=== PATIENT | female | born 1980 ===

== ENCOUNTER 2018-01-17 21:30 | Emergency (ER) | payer OTHER ==
[2018-01-17 21:31] VITALS: BMI 25.8
[2018-01-17 21:41] VITALS: RESP 20
[2018-01-17 21:55] LABS: BASO % 0.4 % (0.0-2.0); EOS # 0.1 K/uL (0.0-0.7); EOS % 0.7 % (0.0-4.0); HEMOGLOBIN 14.9 g/dL (11.0-16.0); LYMPH # 0.6 K/uL (1.0-4.3); LYMPH % 5.2 % (20.0-40.0); MEAN CELL VOLUME 88.7 fL (81.0-99.0); MEAN CORPUSCULAR HGB CONC 32.7 g/dL (33.0-37.0); MEAN PLATELET VOLUME 10.4 fL (7.2-11.7); MONO # 0.4 K/uL (0.0-0.8); MONO % 3.3 % (0.0-10.0); NEUT # 10.9 K/uL (1.8-7.0); NEUT % 90.4 % (50.0-75.0); PLATELET COUNT 202 K/uL (130-400); RBC 5.13 Mil/uL (3.80-5.20); RED CELL DISTRIBUTION WIDTH 13.6 % (11.5-14.5)
--- NOTE | 2018-01-17 22:01 | C.PDOC ---
History Of Present Illness 37 year old female with no PMHx presents to ED complaining of abdominal pain, nausea, vomiting and diarrhea that began this morning. There have been over 10 episodes of watery bowel movements, non-bloody and 4 episodes of vomiting. A bdominal pain is located in the epigastrium and described as tightness. Patient also complains of chills. Denies fever, dysuria, hematuria, and frequency. <ParraLolaDelma P - Last Filed: 01/17/18 22:03> <ParraDelma donahue P - Last Filed: 01/17/18 22:03> <David Mai E - Last Filed: 01/17/18 22:50> Time Seen by Provider: 01/17/18 21:45 Chief Complaint (Nursing): Abdominal Pain Past Medical History Vital Signs: Last Vital Signs Temp 98.6 F 01/17/18 21:37 Pulse 80 01/17/18 21:37 Resp 20 01/17/18 21:37 BP 110/75 01/17/18 21:37 Pulse Ox 98 01/17/18 21:37 - Medical History PMH: No Chronic Diseases Denies: Chronic Kidney Disease Surgical History: Cholecystectomy, (x2) Denies: Pacemaker Family History: States: Unknown Family Hx - Social History Hx Alcohol Use: No Hx Substance Use: No - Immunization History Hx Tetanus Toxoid Vaccination: No Hx Influenza Vaccination: No Hx Pneumococcal Vaccination: No <Delma Parra P - Last Filed: 01/17/18 22:03> Vital Signs: Last Vital Signs Temp 98.6 F 01/17/18 21:37 Pulse 80 01/17/18 21:37 Resp 20 01/17/18 21:37 BP 110/75 01/17/18 21:37 Pulse Ox 98 01/17/18 22:08 <David Mai E - Last Filed: 01/17/18 22:50> Review Of Systems Constitutional: Positive for: Chills. Negative for: Fever, Sweats Cardiovascular: Negative for: Chest Pain, Palpitations Respiratory: Negative for: Cough, Shortness of Breath Gastrointestinal: Positive for: Nausea, Vomiting, Abdominal Pain, Diarrhea. Negative for: Constipation, Melena, Hematochezia, Hematemesis Genitourinary: Negative for: Dysuria, Frequency, Hematuria Neurological: Negative for: Weakness, Numbness <Delma Parra P - Last Filed: 01/17/18 22:03> Physical Exam - Physical Exam Appears: Non-toxic, No Acute Distress Skin: Normal Color, Warm, Dry Head: Atraumatic, Normacephalic Eye(s): bilateral: Normal Inspection, PERRL, EOMI Oral Mucosa: Moist Throat: Normal Neck: Normal, Normal ROM Cardiovascular: Rhythm Regular, No Rhythm Irregular, No Edema, No Friction Rub, No Murmur, No JVD Respiratory: Normal Breath Sounds, No Decreased Breath Sounds, No Accessory Muscle Use, No Rales, No Rhonchi Gastrointestinal/Abdominal: Bowel Sounds, Soft, Tenderness (mild over epigastrium), No Guarding, No Rebound Extremity: Normal ROM, No Tenderness, No Pedal Edema, No Calf Tenderness Pulses: Left Dorsalis Pedis: Normal, Right Dorsalis Pedis: Normal Neurological/Psych: Oriented x3, Normal Speech, Normal Cranial Nerves (grossly) <ParraDelma P - Last Filed: 01/17/18 22:03> ED Course And Treatment O2 Sat by Pulse Oximetry: 98 <Lola Parraissa P - Last Filed: 01/17/18 22:03> - Laboratory Results Result Diagrams: 01/17/18 21:48 01/17/18 21:48 <David Mai E - Last Filed: 01/17/18 22:50> Medical Decision Making Medical Decision Making: Plan: IVF Zofran Pepcid UA <Parra,Delma P - Last Filed: 01/17/18 22:03> Medical Decision Making: viral gastroenteritis same as kids @ home. no acute renal dysfxn <David Mai E - Last Filed: 01/17/18 22:50> Disposition <Delma Parra P - Last Filed: 01/17/18 22:03> Doctor Will See Patient In The: Office Counseled Patient/Family Regarding: Studies Performed, Diagnosis - Disposition Disposition Time: 22:50 <David Mai - Last Filed: 01/17/18 22:50> - Disposition Disposition: HOME/ ROUTINE Condition: GOOD Forms: [employer] ([place]) - Clinical Impression Clinical Impression: Nausea and vomiting, Diarrhea
[2018-01-17 22:21] LABS: ALB/GLOB RATIO 1.1 (1.0-2.1); ALBUMIN 4.5 g/dL (3.5-5.0); ALT/SGPT 18 U/L (9-52); AST/SGOT 30 U/L (14-36); BLOOD UREA NITROGEN 18 mg/dL (7-17); CALCIUM 9.6 mg/dl (8.6-10.4); GFR NON-AFRICAN AMERICAN > 60
[2018-01-17 23:24] LABS: LYMPHOCYTE 3 % (20-40); MONOCYTE 2 % (0-10); TOTAL CELLS COUNTED 100
[2018-01-17 23:25] LABS: EOSINOPHIL 1 % (0-4); NEUTROPHIL 94 % (50-75); PLATELET ESTIMATE NORMAL (NORMAL)
[2018-01-18 01:02] VITALS: BP 109/67; PULSE 87; TEMP 99; O2SAT 100
== END 2018-01-17 23:35 | disposition home or self-care (01) ==
LOC: C.ER 21:30
DX: R11.2 Nausea with vomiting, unspecified (principal); R19.7 Diarrhea, unspecified
CPT/HCPCS: 80053; 85025; 96374; 96375; 99284; J2405